=== PATIENT | male | born 1945 | race Caucasian/White ===

== ENCOUNTER 2024-03-01 16:39 | Emergency (ER) | payer MEDICARE ==
[2024-03-01] MEDS ORDERED: Sodium Chloride 0.9% 10 ML Syringe FLUSH PRN (17:04)
[2024-03-01 17:32] LABS: BASOPHILS ABSOLUTE AUTO 0.06 K/uL (0.00-0.10); BASOPHILS PERCENT AUTO 0.8 % (0.1-1.3); EOSINOPHILS ABSOLUTE AUTO 0.28 K/uL (0.00-0.40); EOSINOPHILS PERCENT AUTO 3.9 % (0.0-5.4); HEMOGLOBIN 13.4 g/dL (12.9-16.9); IMMATURE GRAN PERCENT AUTO 0.3 % (0.0-0.7); LYMPHOCYTES ABSOLUTE AUTO 2.24 K/uL (0.8-3.3); LYMPHOCYTES PERCENT AUTO 31.3 % (11.4-47.7); MEAN CORPUSCULAR HEMOGLOBIN 27.1 pg (31.6-35.5); MEAN CORPUSCULAR HGB CONC 33.5 g/dL (31.6-35.5); MEAN CORPUSCULAR VOLUME 80.8 fL (81.4-99.0); MONOCYTES ABSOLUTE AUTO 0.67 K/uL (0.20-0.90); MONOCYTES PERCENT AUTO 9.4 % (3.3-12.6); NEUTROPHILS ABSOLUTE AUTO 3.88 K/uL (1.0-7.6); NEUTROPHILS PERCENT AUTO 54.3 % (40.0-78.1); PLATELET COUNT,PLT 277 K/uL (130-375); RED BLOOD CELL COUNT 4.95 M/uL (4.14-5.76); WHITE BLOOD CELL COUNT,WBC 7.2 K/uL (3.2-11.0)
[2024-03-01 17:38] LABS: IMMATURE GRAN ABSOLUTE AUTO 0.02 K/uL (0.00-0.23)
[2024-03-01 17:50] LABS: INR 1.1; PROTHROMBIN TIME 10.7 sec (9.2-10.6); PTT,PARTIAL THROMBOPLSTIN TIME 28.5 sec (21.8-27.3)
[2024-03-01 17:56] LABS: CALCIUM 9.9 mg/dL (8.5-10.1); EST CRCL DRUG DOSING (CG) 58.76 mL/min; POTASSIUM,K 3.3 mmol/L (3.6-5.2); TROPONIN I HIGH SENSITIVITY 14.9 pg/mL (<=60.3)
[2024-03-01 17:57] LABS: ANION GAP 15.3 mmol/L (5.0-14.0)
[2024-03-01] MEDS: Sodium Chloride 0.9% 10 ML Syringe FLUSH ONE (19:08)
[2024-03-01] MEDS: Sodium Chloride 0.9% 100 ML IV SCH (19:08)
[2024-03-01] MEDS: Iopamidol 755 Mg/ML 100 ML Bottle IV SCH (19:08)
[2024-03-01 19:24] LABS: CORONAVIRUS COVID-19 NAA NEGATIVE (NEGATIVE); INFLUENZA A NAA NEGATIVE (NEGATIVE); INFLUENZA B NAA NEGATIVE (NEGATIVE); RESPIRATORY SYNCYTIAL VIR NAA NEGATIVE (NEGATIVE)
[2024-03-01 19:35] VITALS: BP 156/69; PULSE 58
== END 2024-03-01 20:32 | disposition home or self-care (01) ==
LOC: JP.ED 16:39
DX: G51.0 Bell's palsy (principal); I10 Essential (primary) hypertension; I25.10 Atherosclerotic heart disease of native coronary artery without angina pectoris; E78.00 Pure hypercholesterolemia, unspecified; K21.9 Gastro-esophageal reflux disease without esophagitis; E11.9 Type 2 diabetes mellitus without complications; Z79.899 Other long term (current) drug therapy; Z79.82 Long term (current) use of aspirin; Z95.1 Presence of aortocoronary bypass graft
CPT/HCPCS: 0241U; 36415; 70450; 70496; 70498; 80048; 82947; 84484; 85025; 85610; 85730; 93005; 99284; J3490; Q9967

== ENCOUNTER 2024-05-23 16:03 | Emergency (ER) | payer MEDICARE ==
[2024-05-23 19:41] LABS: BASOPHILS ABSOLUTE AUTO 0.06 K/uL (0.00-0.10); BASOPHILS PERCENT AUTO 0.8 % (0.1-1.3); EOSINOPHILS ABSOLUTE AUTO 0.17 K/uL (0.00-0.40); EOSINOPHILS PERCENT AUTO 2.3 % (0.0-5.4); HEMATOCRIT 37.4 % (38.4-49.7); HEMOGLOBIN 12.9 g/dL (12.9-16.9); IMMATURE GRAN PERCENT AUTO 0.3 % (0.0-0.7); LYMPHOCYTES ABSOLUTE AUTO 2.17 K/uL (0.8-3.3); LYMPHOCYTES PERCENT AUTO 29.2 % (11.4-47.7); MEAN CORPUSCULAR HEMOGLOBIN 30.1 pg (31.6-35.5); MEAN CORPUSCULAR HGB CONC 34.5 g/dL (31.6-35.5); MEAN CORPUSCULAR VOLUME 87.2 fL (81.4-99.0); MONOCYTES ABSOLUTE AUTO 0.74 K/uL (0.20-0.90); NEUTROPHILS ABSOLUTE AUTO 4.26 K/uL (1.0-7.6); NEUTROPHILS PERCENT AUTO 57.4 % (40.0-78.1); PLATELET COUNT,PLT 208 K/uL (130-375); RED BLOOD CELL COUNT 4.29 M/uL (4.14-5.76); WHITE BLOOD CELL COUNT,WBC 7.4 K/uL (3.2-11.0)
[2024-05-23 19:42] LABS: IMMATURE GRAN ABSOLUTE AUTO 0.02 K/uL (0.00-0.23)
[2024-05-23 19:57] LABS: CALCIUM 9.5 mg/dL (8.5-10.1); CREATININE 0.9 mg/dL (0.8-1.3); EST CRCL DRUG DOSING (CG) 67.56 mL/min
[2024-05-23 20:38] VITALS: BP 146/67; PULSE 67
== END 2024-05-23 21:00 | disposition home or self-care (01) ==
LOC: JP.ED 16:03
DX: R13.10 Dysphagia, unspecified (principal); R06.02 Shortness of breath; E11.9 Type 2 diabetes mellitus without complications; I10 Essential (primary) hypertension; I25.10 Atherosclerotic heart disease of native coronary artery without angina pectoris; I73.9 Peripheral vascular disease, unspecified; E78.00 Pure hypercholesterolemia, unspecified; K21.9 Gastro-esophageal reflux disease without esophagitis; Z86.16 Personal history of COVID-19; Z95.1 Presence of aortocoronary bypass graft; Z79.82 Long term (current) use of aspirin; Z79.84 Long term (current) use of oral hypoglycemic drugs; Z79.899 Other long term (current) drug therapy; Z88.8 Allergy status to other drugs, medicaments and biological substances
CPT/HCPCS: 36415; 71045; 80048; 85025; 99285; U0002

== ENCOUNTER 2025-03-08 22:24 | Inpatient (IN) | payer MEDICARE ==
[2025-03-08 22:45] LABS: BASOPHILS ABSOLUTE AUTO 0.05 K/uL (0.00-0.10); BASOPHILS PERCENT AUTO 0.8 % (0.1-1.3); EOSINOPHILS ABSOLUTE AUTO 0.15 K/uL (0.00-0.40); EOSINOPHILS PERCENT AUTO 2.3 % (0.0-5.4); HEMATOCRIT 34.6 % (38.4-49.7); HEMOGLOBIN 11.4 g/dL (12.9-16.9); IMMATURE GRAN PERCENT AUTO 0.3 % (0.0-0.7); LYMPHOCYTES ABSOLUTE AUTO 1.71 K/uL (0.8-3.3); LYMPHOCYTES PERCENT AUTO 25.7 % (11.4-47.7); MEAN CORPUSCULAR HEMOGLOBIN 32.3 pg (31.6-35.5); MEAN CORPUSCULAR HGB CONC 32.9 g/dL (31.6-35.5); MONOCYTES ABSOLUTE AUTO 0.58 K/uL (0.20-0.90); MONOCYTES PERCENT AUTO 8.7 % (3.3-12.6); NEUTROPHILS ABSOLUTE AUTO 4.14 K/uL (1.0-7.6); NEUTROPHILS PERCENT AUTO 62.2 % (40.0-78.1); PLATELET COUNT,PLT 126 K/uL (130-375); RED BLOOD CELL COUNT 3.53 M/uL (4.14-5.76); WHITE BLOOD CELL COUNT,WBC 6.7 K/uL (3.2-11.0)
[2025-03-08 22:46] LABS: IMMATURE GRAN ABSOLUTE AUTO 0.02 K/uL (0.00-0.23)
[2025-03-08 23:02] LABS: CALCIUM 9.5 mg/dL (8.5-10.1); CREATININE 1.6 mg/dL (0.8-1.3); EST CRCL DRUG DOSING (CG) 38.66 mL/min; POTASSIUM,K 3.4 mmol/L (3.6-5.2)
[2025-03-08 23:03] LABS: ANION GAP 22.4 mmol/L (5.0-14.0)
[2025-03-08 23:14] LABS: TROPONIN I HIGH SENSITIVITY 34.7 pg/mL (<=60.3)
[2025-03-08] MEDS: Furosemide 20 MG/2 ML VIAL IVPUSH ONE (23:25)
[2025-03-09] MEDS: 50% Dextrose in Water 50 ML Syringe IVPUSH ONE (00:34)
[2025-03-09] MEDS: Dextrose 10% in Water 500 ML IV SCH (00:45)
[2025-03-09 01:12] LABS: APPEARANCE,URINE CLEAR (CLEAR); BILIRUBIN,URINE NEGATIVE (NEGATIVE); COLOR,URINE YELLOW (YELLOW); GLUCOSE,URINE NEGATIVE (NEGATIVE); KETONES,URINE NEGATIVE (NEGATIVE); LEUKOCYTE ESTERASE,URINE NEGATIVE (NEGATIVE); NITRITE,URINE NEGATIVE (NEGATIVE); OCCULT BLOOD,URINE NEGATIVE (NEGATIVE); PH,URINE 5.5 (5.0-8.0); PROTEIN,URINE NEGATIVE (NEGATIVE); UROBILINOGEN,URINE 0.2 EU/dL (0.2-1.0)
[2025-03-09 01:17] LABS: AMORPHOUS SEDIMENT,URINE NOT SEEN; BACTERIA,URINE FEW; EPITHELIAL CELLS,URINE NOT SEEN; MUCUS,URINE NOT SEEN; RBC,URINE 0-5 (0-5); WBC,URINE 0-5 (0-5)
[2025-03-09] MEDS ORDERED: Ondansetron 4 MG Tab.DIS PO PRN (01:24)
[2025-03-09] MEDS ORDERED: Ondansetron 4 MG/2 ML SDV IV PRN (01:24)
[2025-03-09] MEDS ORDERED: Acetaminophen 325 MG Tab PO PRN (01:24)
[2025-03-09] MEDS ORDERED: Sennosides/Docusate Sodium 50-8.6 MG Tab PO PRN (01:24)
[2025-03-09] MEDS ORDERED: Melatonin 3 MG Tab PO PRN (01:24)
[2025-03-09] MEDS: Potassium Chloride 20 MEQ Tab.ER PO ONE (02:05)
[2025-03-09 05:32] LABS: HEMATOCRIT 37.1 % (38.4-49.7); HEMOGLOBIN 12.5 g/dL (12.9-16.9); MEAN CORPUSCULAR HEMOGLOBIN 32.6 pg (31.6-35.5); MEAN CORPUSCULAR HGB CONC 33.7 g/dL (31.6-35.5); MEAN CORPUSCULAR VOLUME 96.9 fL (81.4-99.0); RED BLOOD CELL COUNT 3.83 M/uL (4.14-5.76); WHITE BLOOD CELL COUNT,WBC 8.1 K/uL (3.2-11.0)
[2025-03-09 05:47] LABS: CALCIUM 9.4 mg/dL (8.5-10.1); CREATININE 1.5 mg/dL (0.8-1.3); EST CRCL DRUG DOSING (CG) 41.24 mL/min; POTASSIUM,K 4.8 mmol/L (3.6-5.2)
[2025-03-09 05:48] LABS: ANION GAP 14.8 mmol/L (5.0-14.0)
[2025-03-09] MEDS: Dextrose 5% in Water 1,000 ML IV SCH (05:54)
[2025-03-09] MEDS: Pantoprazole 40 MG Tab.CR PO SCH (08:10)
[2025-03-09] MEDS: metFORMIN 500 MG Tab PO SCH (09:46)
[2025-03-09] MEDS: Furosemide 40 MG Tab PO SCH (09:46)
[2025-03-09] MEDS: Pioglitazone 15 MG Tab PO SCH (09:46)
[2025-03-09] MEDS: Metoprolol Tartrate 50 MG Tab PO SCH (09:47)
[2025-03-09] MEDS: Clopidogrel 75 MG Tab PO SCH (09:51)
[2025-03-09 09:53] VITALS: BP 108/44; PULSE 47
[2025-03-09] MEDS ORDERED: Ezetimibe 10 MG Tab PO SCH (21:00)
[2025-03-09] MEDS ORDERED: Rosuvastatin 10 MG Tab PO SCH (21:00)
== END 2025-03-09 10:36 | disposition home or self-care (01) | DRG 638 ==
LOC: JP.ED 22:24 → JP.MS 03-09 01:02
PROVIDERS: ADMIT Registered Nurse; ATTEND Hospitalist
DX: E11.649 Type 2 diabetes mellitus with hypoglycemia without coma (principal); I48.11 Longstanding persistent atrial fibrillation; Z66 Do not resuscitate; N17.9 Acute kidney failure, unspecified; I10 Essential (primary) hypertension; I25.10 Atherosclerotic heart disease of native coronary artery without angina pectoris; E78.00 Pure hypercholesterolemia, unspecified; E11.51 Type 2 diabetes mellitus with diabetic peripheral angiopathy without gangrene; H54.7 Unspecified visual loss; F15.90 Other stimulant use, unspecified, uncomplicated; Z79.82 Long term (current) use of aspirin; I11.0 Hypertensive heart disease with heart failure; I50.9 Heart failure, unspecified; H26.9 Unspecified cataract; K21.9 Gastro-esophageal reflux disease without esophagitis; M19.90 Unspecified osteoarthritis, unspecified site; Z86.16 Personal history of COVID-19; Z95.1 Presence of aortocoronary bypass graft; Z95.5 Presence of coronary angioplasty implant and graft; Z86.73 Personal history of transient ischemic attack (TIA), and cerebral infarction without residual deficits; Z79.899 Other long term (current) drug therapy; Z79.84 Long term (current) use of oral hypoglycemic drugs; Z79.02 Long term (current) use of antithrombotics/antiplatelets; Z98.890 Other specified postprocedural states; Z87.891 Personal history of nicotine dependence
CPT/HCPCS: 36415; 70450; 80048; 82947; 83880; 84484; 85025; 93005; J1938; 81001; 85027; 96374; 96375; 99222; 99238; 99285-25; A9270-GY; J7070